=== PATIENT | female | born 1975 | race Caucasian/White ===

== ENCOUNTER 2018-09-19 05:40 | Emergency (ER) | payer BC, SELFPAY ==
[2018-09-19 05:41] VITALS: BP 125/75; PULSE 76; RESP 18; TEMP 36.9; O2SAT 99; BMI 27.7
[2018-09-19 05:44] VITALS: RESP 18
--- NOTE | 2018-09-19 06:04 | CT_ITS ---
STUDY: CT ABDOMEN AND PELVIS WITH CONTRAST REASON FOR EXAM: Female, 43 years old. Lower abdominal pain RADIATION DOSAGE (If Supplied By Facility): CTDIvol = ( 14.90 ) mGy, DLP = ( 1072.43 ) mGycm TECHNIQUE: Transaxial images were obtained from the dome of the diaphragm to the symphysis pubis without oral contrast. 100 IV Isovue 300 was administered. Sagittal and coronal images were reconstructed. Individualized dose optimization techniques were used for this CT. COMPARISON: None. FINDINGS: The visualized lung bases are unremarkable. The visualized portions of the heart are within normal limits. Focal fat along the falciform ligament and in the caudate lobe. Pericholecystic fluid. Normal spleen. Normal pancreas. Normal bilateral adrenal glands. Normal right kidney. Normal left kidney. Normal visualized stomach. Normal small intestine. Normal colon. The appendix is visualized and appears normal. Normal abdominal aorta. Normal inferior vena cava. Normal retroperitoneum. Normal urinary bladder. Normal abdominal wall. L4 limbus vertebra. CT/Abdomen/Pelvis W IV Cont ONLY IMPRESSION: Pericholecystic fluid. Consider right upper quadrant ultrasound. No evidence of acute intestinal pathology or acute obstructive uropathy. Electronically Signed: Johnathan Carlin MD at 7:29 EDT Tel , Service support ,
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
[2018-09-19] MEDS: Morphine 4 MG/ML Syringe IV ×2 (06:14→10:39)
[2018-09-19] MEDS: 0.9% Normal Saline 1,000 ML 1000 ML IV (06:15)
[2018-09-19] MEDS: Dicyclomine 10 MG Capsule 20 MG PO (06:15)
[2018-09-19] MEDS: Ondansetron 4 MG/2 ML Vial IV ×2 (06:15→10:39)
[2018-09-19 06:23] LABS: Absolute Lymphocyte Count 2.25 X10^3/uL (0.83-4.51); Absolute Neutrophil Count 5.9 X10^3/uL (2.0-7.7); Basophil# 0.06 X10^3/uL; Basophil% 0.7 % (0-1); Eosinophil# 0.15 X10^3/uL; Eosinophils% 1.7 % (0-5); Hematocrit 39.8 % (37-47); Hemoglobin 13.7 g/dL (12.0-15.0); Lymphocyte # 2.25 X10^3/ul (4.0); Lymphocyte % 25.2 % (19-41); Mean Corp Hgb Conc 34.4 g/dL (32-36); Mean Corpuscular Hgb 32.4 pg (27.0-32.0); Mean Corpuscular Volume 94.1 fL (81-99); Mean Platelet Vol. 10.1 fl (6.2-12.0); Monocyte# 0.57 X10^3/uL; Monocyte% 6.4 % (0-10); NRBC Flagged by Analyzer 0 % (0-5); Neutrophil # 5.89 X10^3/uL (2.7-7.7); Neutrophil % 65.8 % (47-70); Platelet Count 410 K/mm3 (150-450); RBC Distribution Width CV 11.9 % (11.6-14.6); RBC Distribution Width SD 41.1 fl (35.1-43.9); Red Blood Count 4.23 M/mm3 (4.2-5.4); White Blood Count 8.9 K/mm3 (4.4-11.0)
[2018-09-19 06:57] LABS: AST(SGOT) 117 U/L (15-37); Alanine Aminotransfer ALT/SGPT 55 U/L (13-56); Albumin, Serum 3.6 g/dL (3.2-5.0); Alkaline Phosphatase 100 U/L (45-117); Anion Gap 11 (5-15); BUN 14 mg/dL (7-18); BUN/Creat Ratio 14.4 RATIO (10-20); Chloride 105 mmol/L (98-107); Creatinine, Serum 0.97 mg/dL (0.55-1.02); EST Glomerular Filtration Rate 67 mL/min (>60); Est Glom Filt Rate - Afr Amer 81 mL/min (>60); Estimated Creatinine Clearance 78.96 ml/min; Globulin 3.6 g/dL (2.2-4.2); Glucose 131 mg/dL (74-106); Lipase 194 U/L (73-393); Potassium 3.6 mmol/L (3.5-5.1); Protein, Total 7.2 g/dL (6.4-8.2); Sodium Level 144 mmol/L (136-145)
--- NOTE | 2018-09-19 07:41 | US_ITS ---
STUDY: ABDOMINAL ULTRASOUND - RIGHT UPPER QUADRANT REASON FOR VISIT: Female, 43 years old. Pelvic pain. Right upper quadrant pain. TECHNIQUE: Ultrasound evaluation of the right upper quadrant was performed with real-time and static singh-scale imaging. TECHNICAL QUALITY: Adequate. COMPARISON: CT FINDINGS: Liver: The liver measures 17.7 cm. There is increased echogenicity consistent with fatty infiltration. The bile ducts are within normal limits. There is hepatic color flow. The direction of portal flow is hepatopetal. There is no demonstrated mass lesion. Gallbladder: Normal distended gallbladder. The gallbladder wall measures 2 mm. There is a negative sonographic Becerra's sign. There is pericholecystic fluid. There are multiple echogenic structures within the gallbladder, consistent with small gallstones. Common Bile Duct (C.B.D.): The common bile duct measures 5 mm. Pancreas: Normal size of the head, body and tail of the pancreas. There is normal echogenicity of the pancreas. There is no demonstrated pancreatic mass or cyst. Right Kidney: Normal size of the right kidney. The right kidney measures 11.5 cm. Normal renal cortex. The right cortex measures 2.0 cm. There is no demonstrated renal mass or cyst. There is no right hydronephrosis. US/Gallbladder IMPRESSION: Cholecystitis with small stones and pericholecystic fluid. No biliary dilatation. Electronically Signed: Aryan Galarza MD at 9:32 EDT , Service support ,
[2018-09-19 07:42] LABS: Bacteria 0 SEEN /hpf (None Seen); Mucous, Urine 0 SEEN /hpf (<or=2+); Red Blood Cells-Urine 0 SEEN /hpf (0-5); White Blood Cells 0 SEEN /hpf (0-5)
[2018-09-19 07:49] LABS: Color, Urine Yellow (Yellow); Glucose, Dipstick Normal (Normal); Ketone-Dipstick Negative (Negative); Leukocyte Esterase-Dipstick 25 /ul (Negative); Nitrite-Dipstick Negative (Negative); Occult Blood-Urine 50 /ul (Negative); Protein-Dipstick 15 mg/dl (Negative); Specific Gravity, Urine 1.015 (1.002-1.030); Urine Bilirubin Dipstick Negative (Negative); Urine Clarity Clear (Clear); Urine Urobilinogen 4 mg/dl (Normal)
[2018-09-19 07:55] LABS: Squamous Epithelial Cells - UA 0-5 SEEN /hpf (5-10)
[2018-09-19 07:58] VITALS: BP 124/78; PULSE 81; RESP 16; O2SAT 99
[2018-09-19 09:03] VITALS: BP 151/85; PULSE 90; RESP 20; O2SAT 99
[2018-09-19 10:44] VITALS: BP 120/71; PULSE 73; RESP 16; TEMP 36.8; O2SAT 98
[2018-09-19 11:16] VITALS: BP 120/71; PULSE 77; RESP 16; TEMP 36.8; O2SAT 98
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
== END 2018-09-19 11:00 | disposition short-term general hospital (02) ==
PROVIDERS: Emergency Provider Emergency Medicine; Family Provider Family Medicine; PCP Family Medicine
DX: K81.9 Cholecystitis, unspecified (principal); Z87.891 Personal history of nicotine dependence; Z90.710 Acquired absence of both cervix and uterus
CPT/HCPCS: 74177; 76705; 80053; 81001; 83690; 85025; 99284; J7030; Q9967; A4216; J2405

== ENCOUNTER 2021-11-26 08:33 | Emergency (ER) | payer OTHER, SELFPAY ==
[2021-11-26 08:34] VITALS: BP 156/98; PULSE 111; RESP 18; TEMP 36.4; O2SAT 98; BMI 36.0
[2021-11-26 08:38] VITALS: BP 156/98; PULSE 111; RESP 18; TEMP 36.4; O2SAT 98
--- NOTE | 2021-11-26 09:05 | CT_ITS ---
STUDY: CT ABDOMEN AND PELVIS WITHOUT CONTRAST REASON FOR EXAM: Female, 46 years old. Lower abdominal pain. Loose stools. Frequent urination. RADIATION DOSAGE (If Supplied By Facility): CTDIvol = ( 21.38 ) mGy, DLP = ( 1132.27 ) mGycm TECHNIQUE: Transaxial images were obtained from the dome of the diaphragm to the symphysis pubis without oral contrast, and without intravenous contrast. Sagittal and coronal images were reconstructed. Individualized dose optimization techniques were used for this CT. COMPARISON: Comparison is made with prior study dated 09/19/2018. FINDINGS: There is a 1.5 cm x 0.9 cm nodular groundglass appearance in the posterior segment of the right lower lobe. Follow-up is recommended. The visualized portions of the heart are within normal limits. There is decreased attenuation of the liver consistent with steatosis. The patient is status post cholecystectomy. Normal spleen. Normal pancreas. Normal bilateral adrenal glands. Normal right kidney. Moderate degree of left hydronephrosis and left hydroureter due to an 8.3 mm calculus at the left ureterovesical junction. Normal visualized stomach. Normal small intestine. Normal colon. There is non-visualization of the appendix. Normal abdominal aorta. Normal inferior vena cava. Normal retroperitoneum. Normal urinary bladder. There is absence of the uterus consistent with a prior hysterectomy. Follicles are seen in the left ovary. Normal abdominal wall. Normal osseous structures. Stable limbus vertebrae of the superior endplate of the L4 vertebra. CT/Abdomen/Pelvis without Cont IMPRESSION: 8.3 mm Taxus at the left ureterovesical junction causing a moderate degree of left hydronephrosis and left hydroureter. Electronically Signed: Hermes Medina MD at 9:51 EDT ,
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
[2021-11-26] MEDS: 0.9% Normal Saline 1,000 ML 125 ML IV (09:15)
[2021-11-26] MEDS: Ondansetron 4 MG/2 ML Vial IV (09:15)
[2021-11-26] MEDS: Ketorolac 15 MG/ML Vial IV (09:15)
[2021-11-26 09:16] LABS: Bacteria 0 SEEN /hpf (None Seen); Mucous, Urine 0 SEEN /hpf (<or=2+); White Blood Cells 0 SEEN /hpf (0-5)
[2021-11-26 09:19] LABS: Absolute Lymphocyte Count 2.32 X10^3/uL (0.83-4.51); Absolute Neutrophil Count 9.3 X10^3/uL (2.0-7.7); Basophil# 0.11 X10^3/uL; Basophil% 0.8 % (0-1); Eosinophil# 0.46 X10^3/uL; Eosinophils% 3.5 % (0-5); Hematocrit 39.5 % (37-47); Hemoglobin 13.1 g/dL (12.0-15.0); Lymphocyte # 2.32 X10^3/ul (0.83-4.51); Lymphocyte % 17.7 % (19-41); Mean Corp Hgb Conc 33.2 g/dL (32-36); Mean Corpuscular Hgb 31.6 pg (27.0-32.0); Mean Corpuscular Volume 95.4 fL (81-99); Mean Platelet Vol. 9.8 fl (6.2-12.0); Monocyte# 0.76 X10^3/uL; Monocyte% 5.8 % (0-10); NRBC Flagged by Analyzer 0 % (0-5); Neutrophil # 9.34 X10^3/uL (2.7-7.7); Neutrophil % 71.4 % (47-70); Platelet Count 339 K/mm3 (150-450); RBC Distribution Width CV 12.7 % (11.6-14.6); RBC Distribution Width SD 44.3 fl (35.1-43.9); Red Blood Count 4.14 M/mm3 (4.2-5.4); White Blood Count 13.1 K/mm3 (4.4-11.0)
[2021-11-26 09:23] LABS: Color, Urine Yellow (Yellow); Glucose, Dipstick Normal (Normal); Ketone-Dipstick Negative (Negative); Leukocyte Esterase-Dipstick Negative /ul (Negative); Nitrite-Dipstick Negative (Negative); Occult Blood-Urine 50 /ul (Negative); Protein-Dipstick Negative (Negative); Specific Gravity, Urine 1.025 (1.002-1.030); Urine Bilirubin Dipstick Negative (Negative); Urine Clarity Sl. Cloudy (Clear); Urine Urobilinogen Normal (Normal)
[2021-11-26 09:29] LABS: Red Blood Cells-Urine 0-5 SEEN /hpf (0-5); Squamous Epithelial Cells - UA 0-5 SEEN /hpf (5-10)
[2021-11-26 09:36] LABS: AST(SGOT) 16 U/L (15-37); Alanine Aminotransfer ALT/SGPT 23 U/L (13-56); Albumin, Serum 2.9 g/dL (3.2-5.0); Alkaline Phosphatase 69 U/L (45-117); Anion Gap 8 (5-15); BUN 17 mg/dL (7-18); BUN/Creat Ratio 14.3 RATIO (10-20); Calcium,Total 8.7 mg/dL (8.5-10.1); Chloride 111 mmol/L (98-107); Creatinine, Serum 1.19 mg/dL (0.55-1.02); EST Glomerular Filtration Rate 52 mL/min (>60); Est Glom Filt Rate - Afr Amer 63 mL/min (>60); Estimated Creatinine Clearance 60.22 ml/min; Globulin 2.9 g/dL (2.2-4.2); Glucose 116 mg/dL (74-106); Lipase 115 U/L (73-393); Potassium 4.1 mmol/L (3.5-5.1); Protein, Total 5.8 g/dL (6.4-8.2); Sodium Level 140 mmol/L (136-145)
== END 2021-11-26 10:37 | disposition home or self-care (01) ==
PROVIDERS: Emergency Provider Emergency Medicine; PCP Family Medicine; Visit Provider Emergency Medicine
DX: N13.2 Hydronephrosis with renal and ureteral calculous obstruction (principal); N23 Unspecified renal colic; Z87.891 Personal history of nicotine dependence; R31.9 Hematuria, unspecified
CPT/HCPCS: 74176; 80053; 81001; 83690; 85025; 96361; 96374; 96375; 99283; J7030; A4216; J2405

== ENCOUNTER 2021-12-05 06:27 | Day surgery (SDC) | payer OTHER, SELFPAY ==
[2021-12-05 06:53] VITALS: BP 120/68; PULSE 92; RESP 18; TEMP 36.9; O2SAT 98; BMI 35.9
[2021-12-05] MEDS: Lactated Ringers 1,000 ML 15 ML IV (07:02)
[2021-12-05] MEDS: Cefazolin 2 GM in 0.9% Normal Saline 100 ML IV (08:28)
[2021-12-05] MEDS: Lidocaine Jelly 2% 20 ML Syringe (URO-JET) 1 APPLIC (08:46)
--- NOTE | 2021-12-05 09:08 | DCINST_ITS ---
Discharge Instructions Diet Discharge Diet: No restrictions Activity Discharge Activity: Return to Normal Activity Follow Up Care Please Follow Up With: Houston Rehman MD When: Next to remove the stent call for an appointment Test Results: Test results from this visit will be discussed in further detail at your follow- up appointment, if applicable. Discharge Plan Admission Primary Reason for Your Visit: Left ureteral stone Attending Provider: Houston Rehman Primary Care Provider: Ag Oconnor Instructions Patient Instructions: Having a Ureteral Stent Discharge Orders/Prescriptions Prescriptions: New ciprofloxacin HCl [Cipro] 500 mg tablet 500 mg PO BID Qty: 6 0RF oxycodone-acetaminophen 5-325 mg tablet 1 tab PO Q4H PRN (Reason: pain) 7 Days Qty: 14 0RF Continued bupropion HCl 75 MG tablet 150 mg PO DAILY valacyclovir 1,000 MG tablet 1,000 mg PO DAILY sumatriptan succinate 25 MG tablet 25 mg PO DAILY PRN (Reason: Migraine Symptoms) topiramate 100 MG tablet 100 mg PO DAILY glatiramer 40 MG/ML syringe 40 mg SQ .COMPLEX Rx Instructions: 3 TIMES A WEEK oxycodone-acetaminophen [Percocet] 5-325 mg tablet 1 tab PO Q6H PRN (Reason: pain) 3 Days Qty: 12 0RF ibuprofen 600 mg tablet 600 mg PO 4X/DAY PRN (Reason: Pain Or Fever) Qty: 20 0RF ondansetron 4 mg tablet,disintegrating 4 mg PO Q6H PRN (Reason: nausea and vomiting) Qty: 10 0RF fluoxetine 10 mg Tablet 10 mg PO DAILY Referrals / Follow Up: Ag Oconnor MD [Primary Care Provider] - Houston Rehman MD [Med Staff - Active Staff] - Disposition Disposition (needs filled in before D/C Order can be placed): Home, Self Care
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
--- NOTE | 2021-12-05 09:09 | PCM.OPRPT ---
Report of Operation Date of Procedure: 12/05/21 Pre-Operative Diagnosis: Left ureteral calculi impacted Post-Operative Diagnosis: Same Surgery/Procedure Performed:: Cystoscopy, left retrograde pyelogram, interpretation fluoroscopic images, left balloon dilation of ureter and left ureteroscopy laser of stone and stent placement Description of Surgical Findings:: 46-year-old female taken back to the operating room at the smooth induction of general anesthesia she was placed in dorsolithotomy position. The urethra vaginal area prepped and draped in usual sterile fashion went into the bladder with a 21 [place] rigid cystourethroscope, once inside the bladder I found that there was a stone in the distal left ureter he could see the very tip of the stone coming from the ureter but the ureter is fairly swollen. So I then cannulated the left ureteral orifice with a Glidewire and a Pollick catheter performed a retrograde pyelogram to see the stone of the distal ureter. I then advanced a 12 [place] ureteral balloon dilator up barely beyond the stone and then gently dilated the ureter for about a minute on the left the wire in place and then next to the wire I went in with a ureteroscopy was able to get into the ureter I then used a 270 ?m laser fiber laser the stone little tiny pieces and then all the pieces passed into the bladder I went up the ureter and there was a little bit of inflammation behind the stone is quite tight to get behind the stone with the ureteroscope was able to get through it and then after pulled out from the ureter there is no other stones along the course of the ureter low bit of inflammation and some scarring in the distal ureter. So then left the wire in place and then over the wire I put a stent in on the left side and will see her next to remove the stent and telemetry patient has important keep follow-up for postop ultrasound to make sure that the ureter does not scar down. Surgeon: Houston Rehman Type of Anesthesia: General Drains: stent Admit VTE Documentation VTE Present on Admission: No VTE Mechan Device Prophylaxis: SCD's VTE Pharm Prophylaxis ordered?: No
[2021-12-05 09:15] VITALS: BP 108/69; BP 120/68; PULSE 84; RESP 16; TEMP 36.8; O2SAT 100
[2021-12-05 09:30] VITALS: BP 113/69; BP 120/68; PULSE 83; RESP 16; O2SAT 99
[2021-12-05] MEDS: Ketorolac 15 MG/ML Vial IV (09:31)
[2021-12-05 09:42] VITALS: BP 110/75; BP 120/68; PULSE 88; RESP 16; TEMP 36.5; O2SAT 99
[2021-12-05 10:47] VITALS: BP 113/57; BP 120/68; PULSE 82; RESP 16; TEMP 37.2; O2SAT 99
[2022-01-18 16:16] LABS: Source Ureter
== END 2021-12-05 10:55 | disposition home or self-care (01) ==
LOC: SDC 06:28 → AC 06:29
PROVIDERS: PCP Family Medicine; Referring Provider Urology; Visit Provider Urology
PROC: 0TJ98ZZ Inspection of Ureter, Via Natural or Artificial Opening Endoscopic (ICD-10-PCS; CPT 52352; principal; 2021-12-05 08:25)
DX: N20.1 Calculus of ureter (principal); G35 Multiple sclerosis; Z79.2 Long term (current) use of antibiotics; F41.9 Anxiety disorder, unspecified; F32.A Depression, unspecified; Z90.49 Acquired absence of other specified parts of digestive tract
CPT/HCPCS: 52352; 52332; 00918; 76000; 82360; J7120; C1726; C1769; C2617; J2405